=== PATIENT | female | born 1990 | race African-American/Black ===

== ENCOUNTER 2017-03-12 10:11 | Emergency (ER) | payer OTHER ==
[~2017-03-12] VITALS: Ht 160 cm; Wt 100.2 kg
--- NOTE | ~2017-03-12 | US61 ---
[facility] A Service of [facility] & [facility] / [facility] RADIOLOGY TEXT RESULTS PATIENT: ZACHARY MCGARRY LOCATION: [facility] : [birth year] UNIT #: [id number] AGE: [address]: Brianda Waggoner MD SEX: F ORDER DR: [id number] [facility] [address] [place], [place] [address] [id number] E MR#: [id number] Acc #: [id number] NAME: ZACHARY MCGARRY. : 1990 SEX: F STUDY DATE/TIME: 03/12/2017 11:04 UNIT: [facility] ROOM: STUDY DESCRIPTION: US /Mat <14Wk / Attending Physician: Brianda Waggoner M.D. Ordering Physician: Brianda Waggoner M.D. Primary Care Physician: [facility] MEDICAL IMAGING REPORT This report is preliminary unless electronic signature is present EXAM Pelvic ultrasound 03/12/2017. HISTORY Pain. and moderate amount of vaginal bleeding x1 day. Quantitative beta hCG 2821. FINDINGS Real-time ultrasonography of the pelvic structures performed transabdominally and transvaginally. Transvaginal imaging utilized for better visualization of uterine and adnexal structures. No comparison. On transvaginal images, uterus measures 8.96 cm x 4.6 cm x 4.43 cm. Visualized urinary bladder unremarkable. The uterine myometrium is unremarkable. The endometrial echo complex is thickened measuring 1.66 cm. There may be a small amount of fluid in the endometrial canal. An intrauterine of greater than 4 weeks gestational age is not clearly identified. Followup ultrasound and correlation with serial quantitative beta hCG recommended. The left ovary is visualized. The ice skating coach has identified a potentially solid structure adjacent to what was initially felt to be the left ovary. On viewing cine clips of the left adnexa, I would favor that the potentially solid structure presumed adjacent to the left ovary is simply a portion of the left ovary itself. There appear to be small follicular cysts in this structure and on both transverse and sagittal images, there appears to be tissue continuity between this structure and what the ice skating coach initially described as left ovary. This structure has no sonographic features to raise suspicion for ectopic . Within the left ovary there is a complex cystic structure measuring 1.12 cm x 8 mm x 9.2 mm. Has a relatively thickened irregular wall. I would favor that it is a complicated physiologic cyst perhaps evolving corpus luteum of . It does not appear hyperemic on color Doppler interrogation. I do not believe that it represents an ectopic . The right ovary is not clearly identified. There is [facility] A Service of [facility] RADIOLOGY TEXT RESULTS PATIENT: ZACHARY MCGARRY LOCATION: [facility] : [birth year] UNIT #: [id number] AGE: [address]: Brianda Waggoner MD SEX: F ORDER DR: no free fluid. IMPRESSION 1. Heterogeneous appearance of thickened endometrial complex. Endometrial echo complex measures 1.66 cm in thickness. There may be a small amount of fluid in the endometrial canal. No of greater than 4 weeks gestational age is clearly identified within the uterus. I would recommend short-interval followup pelvic ultrasound and correlation with serial beta hCG values. 2. Uterine myometrium unremarkable. 3. Please see discussion above for evaluation of the left ovary. I believe the left ovary has a slightly bilobed configuration. One component of what I believe is the left ovary was initially described by the patient as 8-second solid structure adjacent to the left ovary but on continuous ultrasound images, there appears to be parenchymal bridge between these 2 structures. The lobulation of the left ovary in question does not have sonographic features suspicious for ectopic . I would recommend reassessment at time of short interval followup of the uterus and endometrium. 3. Within the left, ovary there is a complicated cystic structure measuring up to 1.12 cm in diameter. Somewhat irregular thickened wall. This does not have the typical appearance of an ectopic . No peripheral hyperemia. It may represent evolving corpus luteum of . Short-interval reassessment recommended. 4. No free fluid. 5. Right ovary not visualized. No abnormal right adnexal structure. Dictated by... Stevie Gallegos M.D. THIS IS AN ELECTRONICALLY VERIFIED REPORT Stevie Gallegos M.D. at 03/12/2017 6:31 PM [place] TD: 03/12/2017 14:20 JOB #: [id number] MEDICAL IMAGING REPORT Page 1 of 1 COPY
[2017-03-12 11:02] LABS: BASOPHIL% 0.6 % (0-2.5); EOSINOPHIL# 0.1 X10e3 (0-0.7); EOSINOPHIL% 0.8 % (0.0-7.0); HEMATOCRIT 34.1 % (35.0-45.0); LYMPHOCYTE# 1.6 X10e3 (1.0-3.5); LYMPHOCYTE% 25.1 % (17.0-45.0); MEAN CELL VOLUME 94.6 FL (83-96); MEAN CORPUSCULAR HEMOGLOBIN 33.4 PG (28-34); MEAN CORPUSCULAR HGB CONC 35.3 g/dL (30-36); MEAN PLATELET VOLUME 7.1 FL (6.5-11.5); MONOCYTE# 0.6 X10e3 (0-1.0); MONOCYTE% 9.4 % (3.0-12.0); NEUTROPHIL% 64.1 % (40-75); PLATELET COUNT 311 X10e3 (140-420); WHITE BLOOD COUNT 6.2 X10e3 (4.0-10.5)
[2017-03-12 11:04] LABS: DIFF IND NO
== END 2017-03-12 14:08 | disposition home or self-care (01) ==
LOC: CED 10:11
PROVIDERS: Emergency Medicine
DX: O03.4 Incomplete spontaneous abortion without complication (principal)
CPT/HCPCS: 36415; 76801; 84702; 85025; 86900; 86901; 99284